=== PATIENT | male | born 1985 | race Caucasian/White ===

== ENCOUNTER 2020-07-19 19:58 | Emergency (ER) | payer OTHER ==
[2020-07-19] MEDS ORDERED: Acetaminophen/HYDROcodone 325-5 MG Tab PO ONE ×2 (19:59→21:14)
--- NOTE | 2020-07-19 21:07 | EDM.PDOC ---
ED HPI GENERAL MEDICAL PROBLEM - General Chief Complaint: Lower Extremity Injury/Pain Stated Complaint: HURT RIGHT ANKLE, SOMETHING POPPED Time Seen by Provider: 07/19/20 20:57 Source of Information: Reports: Patient, RN History Limitations: Reports: Other (Right foot/heel pain.) - History of Present Illness INITIAL COMMENTS - FREE TEXT/NARRATIVE: 34-year-old male who presents to the ER with complaints of right heel injury about 1 hour ago. Patient reports he was playing basketball and in the process of running, he felt a pop on his right heel and had immediate pain. He rates pain as a 6 out of 10 at rest and 10 out of 10 with ambulation, with 10 being the worst pain ever. Patient reports inability to ambulate using his right foot after injury. He came into the ER in a wheelchair. No modifying or alleviating factors at this time. No history of prior right foot injury. No pain modalities provided at the scene. Ice applied in the ER. Right Posterior Ankle Pain Score (Numeric/FACES): 6 - Related Data Allergies Allergy/AdvReac Type Severity Reaction Status Date / Time No Known Allergies Allergy Verified 07/19/20 20:49 Home Meds: Home Meds . [No Known Home Meds] 07/19/20 [History] Review of Systems - Review of Systems Review Of Systems: Comprehensive ROS is negative, except as noted in HPI. ED EXAM, GENERAL - Physical Exam Exam: See Below Exam Limited By: Other (Right heel pain.) General Appearance: Alert, Moderate Distress ( ) Respiratory/Chest: No Respiratory Distress, Lungs Clear, Normal Breath Sounds, No Accessory Muscle Use, Chest Non-Tender Cardiovascular: Normal Peripheral Pulses, Regular Rate, Rhythm, No Edema, No Gallop, No JVD, No Murmur, No Rub Peripheral Pulses: 3+: Popliteal (L), Popliteal (R), Posterior Tibial (R), Dorsalis Pedis (R) Extremities: Limited Range of Motion (Right foot intact with limited range of motion due to pain. Moderate pain reported with light palpation of the right achilles tendon and heel. No bruising or swelling noted at this time. unable to ambulate on right foot.) Neurological: Alert Psychiatric: Normal Affect, Normal Mood Skin Exam: Warm, Intact Course - Vital Signs Last Recorded V/S: Last Vital Signs Temp 98.8 F 07/19/20 20:15 Pulse 88 07/19/20 20:15 Resp 17 07/19/20 20:15 BP 110/75 07/19/20 20:15 Pulse Ox 97 07/19/20 20:15 - Orders/Labs/Meds Orders: Active Orders 24 hr Category Date Time Status Ankle 2V Rt [CR] Urgent Exams 07/19/20 20:34 Taken Meds: Medications Discontinued Medications Generic Name Dose Route Start Last Admin Trade Name Freq PRN Reason Stop Dose Admin Hydrocodone Bitart/Acetaminophen 1 tab 07/19/20 21:14 Acetaminophen/Hydrocodone 325-5 Mg Tab PO 07/19/20 21:15 ONETIME ONE - Re-Assessments/Exams Free Text/Narrative Re-Assessment/Exam: Reviewed exam findings and x-ray results with patient. Walking boot applied and crutches given to patient. Strongly encouraged use. Departure - Departure Time of Disposition: 21:17 Disposition: Home, Self-Care 01 Condition: Fair Clinical Impression: Injury of right ankle Qualifiers: Encounter type: initial encounter Qualified Code(s): S99.911A - Unspecified injury of right ankle, initial encounter Achilles tendon injury Qualifiers: Encounter type: initial encounter Laterality: right Qualified Code(s): S86.001A - Unspecified injury of right Achilles tendon, initial encounter - Discharge Information Instructions: Crutch Use, Adult, [id number], Achilles Tendinitis Forms: ED Department Discharge Additional Instructions: Encouraged RICE/crutches/walking boat and ibuprofen 600 mg with meals every 6 hours prn or Tylenol 1000 mg every 8 hours as needed. Follow up in the clinic in one day for further assessment with possible MRI. Patient can go to class as long as he is elevating the right heel and using both the walking boat and crutches. He verbalized understanding. Sepsis Event Note (ED) - Evaluation Sepsis Screening Result: No Definite Risk - Focused Exam Vital Signs: Vital Signs Temp Pulse Resp BP Pulse Ox 07/19/20 20:15 98.8 F 88 17 110/75 97 - My Orders Last 24 Hours: My Active Orders 07/19/20 20:34 Ankle 2V Rt [CR] Urgent - Assessment/Plan Last 24 Hours: My Active Orders 07/19/20 20:34 Ankle 2V Rt [CR] Urgent
--- NOTE | 2020-07-19 21:27 | CR ---
PROCEDURE INFORMATION: Exam: XR Right Ankle Exam date and time: 07/19/2020 8:52 PM Age: 34 years old Clinical indication: Other: Pain; Additional info: Pain posterior ankle, heard/felt pop TECHNIQUE: Imaging protocol: XR Right ankle. Views: 1 or 2 views. Total images: 2 COMPARISON: No relevant prior studies available. FINDINGS: Bones/joints: No acute process Soft tissues: There is some deformity along the course of the Achilles tendon. IMPRESSION: 1. Suggestion of soft tissue deformity along the course of the Achilles tendon approximately 3.5 cm proximal to the calcaneal insertion. Correlate clinically for underlying Achilles tendon injury/tear. 2. No bony abnormality.
[2020-07-19] MEDS ORDERED: Acetaminophen/HYDROcodone 325-5 MG Tab ONE (21:42)
== END 2020-07-19 22:08 | disposition home or self-care (01) ==
LOC: DL.ED 19:58
DX: S86.001A Unspecified injury of right Achilles tendon, initial encounter (principal); X58.XXXA Exposure to other specified factors, initial encounter; Y93.67 Activity, basketball
CPT/HCPCS: 73600; 99283; A9270